=== PATIENT | female | born 1955 | race Two or more races ===

== ENCOUNTER 2020-04-26 08:42 | Outpatient (AMBR) | payer MEDICARE, MEDICAID, SELFPAY ==
--- NOTE | 2020-04-26 11:01 | PTNOTE_ITS ---
PT OP Initial Eval Patient Information Visit Reasons: RIGHT KNEE POST OP Medical Diagnosis: M25.561 Treatment Dx #1: Right Knee Weakness Treatment Dx #2: Right Knee Pain Start of Care: 04/26/20 Date of Onset: 03/28/20 Initial Assessment Subjective Pt is a 65 y/o female s/p right knee arthroscopic surgery 03/28/20 due to meniscal lesion. Pt mention minimal knee pain (2/10) since the surgery. Pt still has limitation with prolonged walking, stairs, steps, squatting, kneeling, lifting, chores, self care, standing, and performing recreational activities. Objective Right Knee AROM: 0 deg to 130 deg Right Knee MMTs Quads: 3+/5 Hs: 3+/5 Right Hip MMTs Glute Med: 3/5 Glute Max: 3/5 SLS: 3 sec Assessment Pt demonstrate right knee pain and weakness s/p arthroscopic surgery leading to decline function. Pt will benefit from physical therapy to increase ROM, strength, and work on ambulation. Short Term and Music Rehabilitation Therapist Goals 1) Increase right knee AROM WNL in 6 wks to be able to perform chores 2) Increase right knee MMTs grossly to 4/5 in 6 wks to be able to perform squatting activities 3) Decrease knee pain to 1/10 in 6 wks to be able to walk more than 1 hr with AD 4) Increase right hip MMTs grossly to 4-/5 in 6 wks to be able to perform recreational activities 5) Increase SLS to 15 sec in 6 wks to be able to perform self care activities 6) Indep with HEP Treatment Plan 1) Manual Therapy 2) Therapeutic Activities 3) Therapeutic Exercises 4) Modalities (ice, heat) 5) Balance Training 6) Gait Training Frequency and Duration 2 x wk for 6 wks Certification Dates: 04/26/20 to 07/26/20 Office Procedures PT Procedures PT Date of Service: 04/26/20 OP PT Eval Mod Complex 30 minutes: Yes
--- NOTE | 2020-05-02 15:21 | PT.ODAYNRPT ---
PT Outpatient Daily Note Date of Service: 05/02/20 OP Daily Note Visit Reasons: RIGHT KNEE POST OP Outpatient Physical Therapy Treatment Date: 05/02/20 Subjective: Pt ran out of her medication and has not been taking her meds for 3 days. Pt feels off and imbalance with joint pain throughout the body. Objective: Please see flow chart for list of ther ex performed Assessment: performed only seated ther ex today due to noted imbalance coming into therapy and while getting off the sci-fit. Pt was asked regarding her meds and she mention that her prescription was refilled as of this morning and will start taking meds starting today Plan: Continue with PT Length of Time (minutes) of Treatment: 30 Minutes Office Procedures PT Procedures PT Date of Service: 04/26/20 OP PT Eval Mod Complex 30 minutes: Yes PT Procedures PT Date of Service: 05/02/20 Therapeutic Exercise 30 minutes: Yes
--- NOTE | 2020-05-24 09:34 | PT.ODS1RPT ---
PT OP Progress/Discharge Note Date of Service: 05/24/20 Progress Note/DC Note Progress Note/Discharge Note: DC Note Patient Information Visit Reasons: RIGHT KNEE POST OP Service Continue Service or Discharge: Discharge Discharge Date: 05/24/20 Status Assessment: Pt has been seen for 5 visits (eval + 4 visits). Pt last treated on 05/14/20 and called 05/24/20 to cx all pending appts. Pt's back is hurting her a lot and will like to discontinue therapy for the knee. Pt will be d/c per Pt's request. Pt did not meet set goals in therapy, thank you for your referrals. Office Procedures PT Procedures PT Date of Service: 04/26/20 OP PT Eval Mod Complex 30 minutes: Yes PT Procedures PT Date of Service: 05/02/20 Therapeutic Exercise 30 minutes: Yes
== END 2020-05-02 23:59 | disposition home or self-care (01) ==
PROVIDERS: PCP Family Medicine; Referring Provider Family Medicine; Visit Provider Orthopaedic Surgery
DX: M25.561 Pain in right knee (principal); G89.29 Other chronic pain; R53.1 Weakness; Z98.890 Other specified postprocedural states; R26.2 Difficulty in walking, not elsewhere classified
CPT/HCPCS: 97110; 97162

== ENCOUNTER 2020-05-14 08:48 | Outpatient (AMBR) | payer MEDICARE, MEDICAID, SELFPAY ==
--- NOTE | 2020-05-04 10:21 | PT.ODAYNRPT ---
PT Outpatient Daily Note Date of Service: 05/04/20 OP Daily Note Visit Reasons: right knee Outpatient Physical Therapy Treatment Date: 05/04/20 Subjective: Pt's knee feels good. Pt is more stable and minimal balance issue since last visit due to taking her meds. Objective: Please see flow chart for list of ther ex performed Assessment: tolerate exercises with minimal pain Plan: Continue with PT Length of Time (minutes) of Treatment: 30 Minutes Office Procedures PT Procedures PT Date of Service: 05/04/20 Therapeutic Exercise 30 minutes: Yes
--- NOTE | 2020-05-09 11:20 | PTNOTE_ITS ---
PT Outpatient Daily Note Date of Service: 05/09/20 OP Daily Note Visit Reasons: right knee Outpatient Physical Therapy Treatment Date: 05/09/20 Subjective: Pt mention that her knee and joints throughout her body is hurting a lot today. Pt still wants to do physical therapy. Pt mention that this past weekend she fell at [employer] due to joint pain. Pt does not feel that her pain and soreness is related to previous session Objective: Please see flow chart for list of ther ex performed Assessment: only seated ther ex performed due to imbalance noted coming into therapy session. Pt tolerate all seated ther ex no bike today due to excessive pain Plan: Continue with PT Length of Time (minutes) of Treatment: 30 Minutes Office Procedures PT Procedures PT Date of Service: 05/09/20 Therapeutic Exercise 30 minutes: Yes
--- NOTE | 2020-05-14 11:17 | PT.ODAYNRPT ---
PT Outpatient Daily Note Date of Service: 05/14/20 OP Daily Note Visit Reasons: right knee Outpatient Physical Therapy Treatment Date: 05/14/20 Subjective: Pt is having a better day today. Her legs are better and she did some of her band exercises this morning Objective: Please see flow chart for list of ther ex performed Assessment: tolerate exercises with minimal pain Plan: Continue with PT Length of Time (minutes) of Treatment: 30 Minutes Office Procedures PT Procedures PT Date of Service: 05/14/20 Therapeutic Exercise 30 minutes: Yes PT Procedures PT Date of Service: 05/04/20 Therapeutic Exercise 30 minutes: Yes
== END 2020-06-02 23:59 | disposition home or self-care (01) ==
PROVIDERS: PCP Orthopaedic Surgery; Referring Provider Orthopaedic Surgery; Visit Provider Orthopaedic Surgery
DX: M25.561 Pain in right knee (principal); G89.29 Other chronic pain; R53.1 Weakness; Z98.890 Other specified postprocedural states; R26.2 Difficulty in walking, not elsewhere classified
CPT/HCPCS: 97110